=== PATIENT | male | born 1975 | race Caucasian/White ===

== ENCOUNTER 2020-08-08 11:59 | Emergency (ER) | payer SELFPAY ==
[~2020-08-08] VITALS: Ht 175.2 cm; Wt 104.3 kg
[2020-08-08] MEDS ORDERED: PREDNISONE20 M1 PO (12:56)
== END 2020-08-08 13:03 | disposition home or self-care (01) ==
LOC: ED 11:59
DX: G56.03 Carpal tunnel syndrome, bilateral upper limbs (principal)